=== PATIENT | female | born 1975 | race Two or more races ===

== ENCOUNTER → 2020-03-22 | Outpatient (CLI) | payer OTHER | END | disposition home or self-care (01) | LOC: OFIC 805 15:30 | PROVIDERS: ATTEND Otolaryngology | DX: J34.89 Other specified disorders of nose and nasal sinuses (principal); R09.81 Nasal congestion; J30.89 Other allergic rhinitis ==

== ENCOUNTER 2020-04-05 15:39 | Outpatient (CLI) | payer OTHER | END 2020-04-05 16:43 | disposition home or self-care (01) | LOC: OFIC 805 15:39 | PROVIDERS: ATTEND Otolaryngology | DX: J34.89 Other specified disorders of nose and nasal sinuses (principal); R09.81 Nasal congestion; J30.89 Other allergic rhinitis ==